=== PATIENT | male | born 1970 | race Caucasian/White ===

== ENCOUNTER 2016-06-07 13:09 | Emergency (ER) ==
[2016-06-07 13:14] VITALS: BP 160/78
[2016-06-07] MEDS ORDERED: ASPIRIN PO STA (13:15)
[2016-06-07] MEDS ORDERED: NITROGLYCERIN SL PRN (13:15)
[2016-06-07 13:33] LABS: MANUAL DIFF NEEDED? NO
[2016-06-07 13:44] LABS: BASO% 0.9 % (0.0-0.8); EOS% 4.4 % (0.0-10.0); HEMATOCRIT 33.1 % (42.0-52.0); HEMOGLOBIN 10.2 g/dL (14.0-18.0); IMM GRAN# 0.02 X1000 (0.0-0.04); IMM GRAN% 0.3 % (0.0-0.5); LYMPH# 1.05 X1000 (1.2-3.4); LYMPH% 15.4 % (20.5-51.1); MCH 23.4 PG (27-31); MCHC 30.8 g/dL (33-37); MCV 76.1 FL (81-99); MONO# 0.53 X1000 (0.11-0.59); MONO% 7.8 % (1.7-9.3); MPV 9.6 FL (7.4-10.4); NEUT% 71.2 % (42.2-75.2); PLT 307 X1000 (130-400); RBC 4.35 XMIL (4.7-6.1)
[2016-06-07 14:01] LABS: INR 1.03; PROTIME 10.9 Seconds (9.2-11.7); PTT 24.5 Seconds (22.0-36.0)
[2016-06-07 14:07] LABS: AGAP 11; ALBUMIN 4.1 g/dL (3.5-5.0); ALKALINE PHOSPHATASE 88 U/L (32-122); BUN 14 mg/dL (8-22); CALCIUM 8.8 mg/dL (8.8-10.2); CHLORIDE 94 mmol/L (98-107); COSMO 257; GOT 22 U/L (10-34); GPT 22 U/L (10-44); MAGNESIUM 1.8 mg/dL (1.5-2.7); POTASSIUM 4.2 mmol/L (3.5-5.1); SODIUM 128 mmol/L (136-145); TCO2 23 mmol/L (25-35); TOTAL BILIRUBIN 0.25 mg/dL (0.20-1.00); TOTAL PROTEIN 6.8 g/dL (6.3-8.3)
[2016-06-07 14:11] LABS: CK PROFILE 233 U/L (24-204)
--- NOTE | 2016-06-07 14:13 | PROVIDER DOCUMENTATION ---
HPI-Chest Pain - General Chief Complaint: Chest Pain Stated Complaint: CP Time Seen by Provider: 06/07/16 13:53 Source: patient Allergies/Adverse Reactions: Patient Allergies Allergy/AdvReac Type Severity Reaction Status Date / Time Penicillins Allergy Mild REDDENING Verified 02/19/12 22:02 Home Medications: Aripiprazole [Abilify] 20 mg PO DAILY 01/30/16 Cholecalciferol (Vitamin D3) [D3-2000] 2,000 unit PO DAILY 01/30/16 Lamotrigine [Lamictal] 100 mg PO BID 01/30/16 Levothyroxine [Synthroid] 25 microgm PO DAILY 01/30/16 Vortioxetine Hydrobromide [Brintellix] 20 mg PO QAM 01/30/16 - History of Present Illness-CP Nature of Presenting Problem: 45 y/o M presents to ED cc of chest pain. Pt states he has intermittent chest pain that is sharp pain on the L side of chest. Pt states when onset pt became nausea and broke out into a sweat. Pt denies any radiation when the pain hits. On exam pt does have chest wall pain with pressure. Pt denies any SOB on exam. Location: reports: central (L side) Chest Pain Radiation: reports: no radiation Quality of Pain: reports: sharp Severity in ED: mild Onset/Duration: this morning Timing: gone now Context/Activities at Onset: reports: light activity Modifying Factors: improves with: nothing Associated Symptoms: reports: shortness of breath. denies: abdominal pain Nitro Today/Relief: no nitro taken today Aspirin Treatment Today: no aspirin today Similar Symptoms Previously?: No Recently Seen Here or By Another Healthcare Provider: No Review of Systems - Adult - REVIEW OF SYSTEMS - ADULT Constitutional: denies: chills, fever Cardiovascular: reports: chest pain. denies: palpitations Respiratory: reports: shortness of breath. denies: cough Gastrointestinal: reports: nausea. denies: abdominal pain, diarrhea, vomiting Musculoskeletal: denies: bone pain, back pain Neurological: denies: dizziness/vertigo, headache/migraines Past History - Adult - PAST MEDICAL HISTORY-ADULT Review of Records: reports: Old Records Reviewed, Nursing Assessment Review Cardiovascular: reports: HTN Respiratory: reports: asthma Musculoskeletal: reports: denies history Endocrine/Immune: reports: thyroid disorder Other Conditions: reports: denies history - PRIOR SURGERIES/PROCEDURES Surgical/Procedure History: reports: bowel surgery, back/neck (lumbar) - IMMUNIZATION STATUS Childhood Immunizations: See Nurse Assessment Flu Vaccine: See Nurse Assessment - FAMILY HISTORY Family History: reviewed, not pertinent - SOCIAL HISTORY Smoking: less than 1 pack/day Provider spent 3-5 mins advising pt. on dangers of tobacco.: Discussed manners to quit use, and f/u contacts for add'l counseling. Substance Use: denies Alcohol Use Frequency: never Physical Exam-General - PHYSICAL EXAM-ADULT Initial Vital Signs Reviewed: Yes - CONSTITUTIONAL General Appearance: appears well, alert, no apparent distress, obese - EYES Eyes: PERRL/EOMI, pink conjunctivae - HEAD, EARS, NOSE, MOUTH & THROAT HENMT: normocephalic/atraumatic, moist mucous membranes, normal ENT inspection - NECK Neck: non-tender, full range of motion, supple, normal inspection - RESPIRATORY Respiratory: chest non-tender, lungs clear, normal breath sounds - CARDIOVASCULAR Cardiovascular: normal peripheral pulses, regular rate, rhythm, no edema - GASTROINTESTINAL (ABDOMEN) Abdominal Exam: normal bowel sounds, non tender, soft - LYMPHATIC Lymphatic: no adenopathy - MUSCULOSKELETAL Back Exam: normal inspection, no CVA tenderness, no vertebral tenderness Extremity: normal range of motion, non-tender, normal gait - SKIN Integumentary: normal color, normal turgor, warm/dry - NEUROLOGIC Neurologic: elementary supervisor II-XII nml as tested, grossly normal, no motor/sensory deficits - PSYCHIATRIC Psych/Mental Status: normal mood/affect, normal thought content, normal thought process, oriented x 3 Progress - PLAN OF CARE/RESULTS Progress/Plan/Lab Results: plan: LABS, EKG notified of all labs being back and Pt requesting to leave Pt is ready to be discharged. With chest wall pain. Laboratory Tests 06/07/16 06/07/16 06/07/16 13:15 13:15 13:15 WBC 6.82 RBC 4.35 L Hgb 10.2 L Hct 33.1 L MCV 76.1 L MCH 23.4 L MCHC 30.8 L RDW Std Deviation 17.8 H Plt Count 307 MPV 9.6 Immature Gran % (Auto) 0.3 Neut % (Auto) 71.2 Lymph % (Auto) 15.4 L Chase % (Auto) 7.8 Eos % (Auto) 4.4 Baso % (Auto) 0.9 H Immature Gran # (Auto) 0.02 Neut # (Auto) 4.86 Lymph # (Auto) 1.05 L Chase # (Auto) 0.53 Eos # (Auto) 0.30 Baso # (Auto) 0.06 PT INR PTT (Actin FS) D-Dimer 0.32 Sodium 128 L Potassium 4.2 Chloride 94 L Carbon Dioxide 23 L Anion Gap 11 BUN 14 Creatinine 0.8 Estimated GFR/1.73 m2 > 60 BUN/Creatinine Ratio 18 Glucose 88 Calculated Osmolality 257 Calcium 8.8 Magnesium 1.8 Total Bilirubin 0.25 AST 22 ALT 22 Alkaline Phosphatase 88 Creatine Kinase 233 H Creatine Kinase Index 2.2 CK-MB (CK-2) 5.13 H Troponin T [id number] Pept Total Protein 6.8 Albumin 4.1 Globulin 2.7 Albumin/Globulin Ratio 1.5 06/07/16 06/07/16 06/07/16 13:15 13:15 13:15 WBC RBC Hgb Hct MCV MCH MCHC RDW Std Deviation Plt Count MPV Immature Gran % (Auto) Neut % (Auto) Lymph % (Auto) Chase % (Auto) Eos % (Auto) Baso % (Auto) Immature Gran # (Auto) Neut # (Auto) Lymph # (Auto) Chase # (Auto) Eos # (Auto) Baso # (Auto) PT 10.9 INR 1.03 PTT (Actin FS) 24.5 D-Dimer Sodium Potassium Chloride Carbon Dioxide Anion Gap BUN Creatinine Estimated GFR/1.73 m2 BUN/Creatinine Ratio Glucose Calculated Osmolality Calcium Magnesium Total Bilirubin AST ALT Alkaline Phosphatase Creatine Kinase Creatine Kinase Index CK-MB (CK-2) Troponin T < 0.010 Eud-[id number]-Ihwjryjlqds Pept 33 Total Protein Albumin Globulin Albumin/Globulin Ratio Orders Category Date Time Status Cardiac Monitoring DIRECTED Care 06/07/16 13:15 Active Saline Loc NOW Care 06/07/16 13:15 Active CHEST-2 VIEWS [RAD] Stat Exams 06/07/16 13:15 Completed CBC WITH ELECTRONIC DIFF [HEME] Stat Lab 06/07/16 13:15 Completed CK PROFILE [SP CHEM] Stat Lab 06/07/16 13:15 Completed COMPREHENSIVE METABOLIC PANEL [CHEM] Stat Lab 06/07/16 13:15 Completed D-DIMER [CHEM] Stat Lab 01/12/17 13:15 Completed MAGNESIUM [CHEM] Stat Lab 06/07/16 13:15 Completed PRO B-NATRIURETIC PEPTIDE Stat Lab 06/07/16 13:15 Completed PROTIME WITH INR [COAG] Stat Lab 06/07/16 13:15 Completed PTT [COAG] Stat Lab 06/07/16 13:15 Completed TROPONIN T Stat Lab 06/07/16 13:15 Completed Aspirin Med 06/07/16 13:15 Discontinued 325 mg PO STAT STA Nitroglycerin Sl [Nitroglycerin] Med 06/07/16 13:15 Active 0.4 mg SL Q5M PRN PRN EKG [EKG] Stat Ther 06/07/16 13:14 Draft Vital Signs - 24 hr 06/07/16 13:12 Temperature 97 F L Pulse Rate 90 Respiratory 20 Rate Blood Pressure 160/78 O2 Sat by Pulse 99 Oximetry - XRAY 1 XRAY: Bilateral XRAY Study: Chest Impression: Normal XRAY Interpretation: NAD Departure - Departure Time of Disposition Order: 16:11 DIAGNOSIS: Chest wall pain Disposition: HOME 01 Certified Medical Emergency: Emergent Condition: Stable Additional Instructions: FOLLOW UP WITH CARDIOLOGY ED Follow Up Instructions: You have been treated by a care provider in the Emergency Department. These instructions are being provided to you so you can have an understanding of how to care for yourself upon discharge. Upon discharge from the Emergency Department, you are responsible for making arrangements for follow-up care by a physician of your choice. Take all prescribed medications as directed. Return to the Emergency Department immediately for any new or worsening symptoms. You may call the Physician Referral phone number at [phone] to obtain a list of Physicians who are taking new patients. Referrals: Ruben Saavedra MD [Primary Care Provider] - Doug Magallon MD [STAFF PHYSICIAN] - Forms: Return to School/Parent Work Instructions: Chest Wall Pain, [id number] Attestation - Scribe Verification/Attestation Scribe:: Anisa Fay Acting as Scribe for:: Erasmo Canela Scribe documention review:: This chart was documented by a scribe and accurately reflects the service the provider performed and the decisions made by the provider.
--- NOTE | 2016-06-07 14:20 | Diag Imaging Result Document ---
PROCEDURE NAME: CHEST-2 VIEWS - 06/07/2016 2 VIEWS OF THE CHEST: FINDINGS: There is no evidence of acute cardiac or pulmonary disease. Compared to 01/30/2016 there has been no significant change. IMPRESSION: No acute disease.
[2016-06-07 14:38] LABS: CK INDEX 2.2 (0.0-2.5); CK-MB 5.13 ng/mL (0.0-5.0)
--- NOTE | 2016-06-07 14:41 | EKG Report ---
Test Performed on : 06/07/2016 1:15:40 PM Test Reason : cp Blood Pressure : / mmHG Vent. Rate : 078 BPM Atrial Rate : 078 BPM P-R Int : 134 ms QRS Dur : 102 ms QT Int : 398 ms P-R-T Axes : 033 009 041 degrees QTc Int : 453 ms Normal sinus rhythm. Normal ECG When compared with ECG of 30-JAN-2016 12:30, premature ventricular complexes. are no longer present Unconfirmed Result
--- NOTE | 2016-06-07 15:23 | ED EKG INTERP ---
EKG Interpretation - EKG Time of EKG reading by physician:: 13:15 EKG Read and Signed by:: Erasmo Canela EKG Interpretation (*Must complete 3 of following elements*): Normal Rate: 78 Rhythm: NSR [place]: normal QRS: normal [place] Interval: normal ST Wave: normal
== END 2016-06-07 16:36 | disposition home or self-care (01) ==
LOC: ED 13:09
DX: R07.89 Other chest pain (principal); R11.0 Nausea; R61 Generalized hyperhidrosis; R06.02 Shortness of breath; I10 Essential (primary) hypertension; E07.9 Disorder of thyroid, unspecified; F17.210 Nicotine dependence, cigarettes, uncomplicated; Z79.899 Other long term (current) drug therapy; Z71.6 Tobacco abuse counseling
CPT/HCPCS: 36415; 71020; 80053; 82550; 82553; 83735; 83880; 84484; 85025; 85379; 85610; 85730; 93005; 99283